=== PATIENT | female | born 1950 | race Caucasian/White ===

== ENCOUNTER → 2017-03-16 | Outpatient (CLI) | payer OTHER | LOC: FIMAGING 12:23 | PROVIDERS: ATTEND Family Medicine | DX: Z12.31 Encounter for screening mammogram for malignant neoplasm of breast (principal); Z80.3 Family history of malignant neoplasm of breast | CPT/HCPCS: G0202 ==

== ENCOUNTER → 2017-04-26 | Outpatient (CLI) | payer OTHER | LOC: FIMAGING 12:09 | PROVIDERS: ATTEND Registered Nurse | DX: M79.642 Pain in left hand (principal) ==

== ENCOUNTER 2017-06-09 10:40 | Observation (INO) | payer OTHER ==
[2017-06-09 10:45] VITALS: RESP 16
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
[2017-06-09] MEDS ORDERED: ALBUTEROL 60 PUFFS/8 GM MDI IH PRN (14:20)
[2017-06-09] MEDS ORDERED: NALOXONE HCL 0.4 MG/ML INJ IVP PRN (14:21)
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
[2017-06-09] MEDS: IBUPROFEN 600 MG TAB PO PRN (17:19)
[2017-06-09] MEDS: AMITRIPTYLINE HCL 50 MG TAB PO SCH (20:04)
[2017-06-09] MEDS: valACYclovir 500 MG TAB PO SCH (20:04)
[2017-06-09] MEDS: HYDROCODONE/APAP 5/325 TAB PO PRN (22:32)
[2017-06-10] MEDS: LEVOTHYROXINE 125 MCG TAB PO SCH (06:02)
[2017-06-10] MEDS: IBUPROFEN 600 MG TAB PO PRN (06:02)
[2017-06-10] MEDS: MONTELUKAST SODIUM 10 MG TAB PO SCH (09:02)
[2017-06-10] MEDS: OXYBUTYNIN 5 MG EXT REL TAB PO SCH (09:02)
[2017-06-10] MEDS: Mirabegron [Myrbetriq] 50 MG PO SCH (09:08)
[2017-06-10] MEDS: HYDROCODONE/APAP 5/325 TAB PO PRN (09:22)
[2017-06-10] MEDS ORDERED: KETOROLAC 30 MG/1 ML SDV IVP ONE (10:54)
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
[2017-06-10] MEDS: GABAPENTIN 300 MG CAP PO SCH ×3 (11:58→21:09)
[2017-06-10] MEDS: KETOROLAC 15 MG/1 ML SDV IVP SCH ×3 (16:08→23:51)
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
[2017-06-10] MEDS: valACYclovir 500 MG TAB PO SCH (21:09)
[2017-06-10] MEDS: AMITRIPTYLINE HCL 50 MG TAB PO SCH (21:09)
[2017-06-11 03:44] VITALS: TEMP 96.1
[2017-06-11] MEDS: LEVOTHYROXINE 125 MCG TAB PO SCH (06:32)
[2017-06-11] MEDS: KETOROLAC 15 MG/1 ML SDV IVP SCH ×2 (06:32→11:42)
[2017-06-11 08:12] VITALS: BP 131/70; PULSE 58; O2SAT 95
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
[2017-06-11] MEDS: MONTELUKAST SODIUM 10 MG TAB PO SCH (10:16)
[2017-06-11] MEDS: OXYBUTYNIN 5 MG EXT REL TAB PO SCH (10:16)
[2017-06-11] MEDS: GABAPENTIN 300 MG CAP PO SCH (10:16)
[2017-06-11] MEDS: Mirabegron [Myrbetriq] 50 MG PO SCH (10:17)
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
== END 2017-06-11 12:08 | disposition home or self-care (01) ==
LOC: EDUNIT# → F3N 16:28 → OBSVTOIN 06-10 11:18 → INTOOBSV 06-10 11:18
PROVIDERS: ADMIT Surgery; ATTEND Surgery
DX: S86.312A Strain of muscle(s) and tendon(s) of peroneal muscle group at lower leg level, left leg, initial encounter (principal); S99.911A Unspecified injury of right ankle, initial encounter; S99.912A Unspecified injury of left ankle, initial encounter; S00.03XA Contusion of scalp, initial encounter; V03.00XA Pedestrian on foot injured in collision with car, pick-up truck or van in nontraffic accident, initial encounter; Y92.410 Unspecified street and highway as the place of occurrence of the external cause; Y99.8 Other external cause status; R40.2411 Glasgow coma scale score 13-15, in the field [EMT or ambulance]; E03.9 Hypothyroidism, unspecified; G43.909 Migraine, unspecified, not intractable, without status migrainosus; J45.909 Unspecified asthma, uncomplicated; Z96.652 Presence of left artificial knee joint; Z88.2 Allergy status to sulfonamides
CPT/HCPCS: 73590; 73610; 73630; 73718; 73721; 97116; 97161; 97165; 97530; 97535; 99285; G0378; G8978; G8979; G8980; G8987; G8988; J1885

== ENCOUNTER → 2017-07-17 | Outpatient (CLI) | payer OTHER | LOC: FIMAGING 08:21 | PROVIDERS: ATTEND Ophthalmology Retina Specialist | DX: H47.011 Ischemic optic neuropathy, right eye (principal) ==

== ENCOUNTER → 2018-04-06 | Outpatient (CLI) | payer OTHER | LOC: FIMAGING 12:24 | PROVIDERS: ATTEND Family Medicine | DX: Z12.31 Encounter for screening mammogram for malignant neoplasm of breast (principal); Z80.3 Family history of malignant neoplasm of breast ==

== ENCOUNTER → 2018-05-08 | Outpatient (CLI) | payer OTHER | LOC: FIMAGING 15:18 | PROVIDERS: ATTEND Physician Assistant | DX: R05 Cough (principal); J40 Bronchitis, not specified as acute or chronic ==

== ENCOUNTER 2018-08-07 13:33 | Day surgery (SDC) | payer OTHER ==
--- NOTE | 2018-08-06 10:02 | GHP ---
[f rep st] PREOP HISTORY AND PHYSICAL DATE OF ADMISSION: 08/07/2018 CHIEF COMPLAINT: Right midfoot pain. HISTORY OF PRESENT ILLNESS: Patient is a 68-year-old with history of progressive pain and stiffness in the right foot. She is having limitations in ability to ambulate secondary to her pain. PAST MEDICAL HISTORY: Positive for hypothyroid, hypercholesterol, migraines. MEDICINES: Include amitriptyline, azelastine, estradiol, levothyroxine, montelukast, Myrbetriq, oxybutynin, simvastatin, valacyclovir. ALLERGIES: She lists allergies to contrast iodine and sulfa. SOCIAL HISTORY: Negative for tobacco use. PHYSICAL EXAMINATION: GENERAL: She is overall appearing in no acute distress. HEENT: Normocephalic. Pupils equal, round, reactive to light. Extraocular eye movements intact. NECK: Supple. No JVD or lymphadenopathy. CHEST: Clear to auscultation. HEART: Regular rate and rhythm. ABDOMEN: Nontender, nondistended. No organomegaly. GENITAL/RECTAL/BREASTS: Deferred. EXTREMITIES : Reveal mild swelling and tenderness in the mid foot. Her distal neurovascular exam is intact. ASSESSMENT: Right midfoot arthrosis. PLAN: She is scheduled to undergo midfoot arthrodesis. /[id number]/MODL MTDD
--- NOTE | 2018-08-07 12:31 | PDHPUP ---
History & Physical Update H&P update statement: This history and physical update is based on an assessment of the patient which was completed after admission or registration (within 24 hours), but prior to the surgery/procedure. H&P update: H&P reviewed & patient examined, no change in patient's condition since H&P completed
[2018-08-07] MEDS ORDERED: LR 1,000 ML IV ONE (13:49)
[2018-08-07] MEDS ORDERED: ceFAZolin 2 GM/DEXTROSE 100 ML IV ONE (13:49)
[2018-08-07] MEDS ORDERED: BUPIVACAINE 0.5% 30 ML SDV ONE (14:34)
[2018-08-07] MEDS ORDERED: MIDAZOLAM 2 MG/2 ML VIAL ONE (15:33)
[2018-08-07] MEDS ORDERED: MIDAZOLAM 2 MG/2 ML VIAL IVP ONE (15:35)
--- NOTE | 2018-08-07 15:35 | PDANEPAE ---
ANE Past Medical History - Cardiovascular History Hx Hypertension: No Hx Arrhythmias: No Hx Chest Pain: No Hx Coronary Artery / Peripheral Vascular Disease: No Hx CHF / Valvular Disease: No Hx Palpitations: No - Pulmonary History Hx COPD: No Hx Asthma/Reactive Airway Disease: No Hx Recent Upper Respiratory Infection: No Hx Oxygen in Use at Home: No Hx Sleep Apnea: Yes Sleep Apnea Screening Result - Last Documented: Positive Pulmonary History Comment: RECENTLY DXd SLEEP APNEA - MOUTHGUARD - Neurologic History Hx Cerebrovascular Accident: No Hx Seizures: No Hx Dementia: No - Endocrine History Hx Diabetes: No Endocrine History Comment: HYPOTHYROID - Renal History Hx Renal Disorders: Yes Renal History Comment: OVERACTIVE BLADDER. NEPHRECTOMY L - Liver History Hx Hepatic Disorders: No - Neurological & Psychiatric Hx Hx Neurological and Psychiatric Disorders: No - Cancer History Hx Cancer: No - Congenital Disorder History Hx Congenital Disorders: No - GI History Hx Gastrointestinal Disorders: No - Other Health History Other Health History: HX - CHRONIC LYME DISEASE - Surgical History Prior Surgeries: HYSTERECTOMY. NEPHRECTOMY L. L TKA ANE Review of Systems Review of Systems: - Exercise capacity METS (RN): 4 METS ANE Patient History - Allergies Allergies/Adverse Reactions: Sulfa (Sulfonamide Antibiotics) Allergy (Verified 06/09/17 10:46) DYE Allergy (Uncoded 08/01/18 15:33) THROAT CLOSING & HIVES - Home Medications Home Medications: Amitriptyline HCl [Elavil 50 mg (*)] 50 mg PO HS 06/09/17 [Last Taken 08/06/18] Levothyroxine [Synthroid 125 mcg (*)] 125 mcg PO DAILY06 06/09/17 [Last Taken 09:00] Mirabegron [Myrbetriq] 50 mg PO DAILY 06/09/17 [Last Taken 08/07/18 09:00] Montelukast Sodium [Singulair 10 mg (*)] 10 mg PO DAILY 06/09/17 [Last Taken 09:00] Oxybutynin Chloride Xl [Ditropan Xl 5mg (*)] 10 mg PO DAILY 06/09/17 [Last Taken 08/07/18 09:00] valACYclovir [Valtrex (*)] 500 mg PO HS 06/09/17 [Last Taken 08/06/18] Estradiol 08/01/18 [Last Taken 1 Week Ago ~07/31/18] Simvastatin 08/01/18 [Last Taken 08/06/18] - NPO status NPO Since - Liquids (Date): 08/07/18 NPO Since - Liquids (Time): 12:00 NPO Since - Solids (Date): 08/06/18 NPO Since - Solids (Time): 22:00 - Smoking Hx Smoking Status: Never smoked - Family Anes Hx Family Hx Anesthesia Complications: NEG ANE Labs/Vital Signs - Vital Signs Blood Pressure: 168/108 Heart Rate: 70 Respiratory Rate: 16 O2 Sat (%): 96 Height: 165.1 cm Weight: 87.09 kg ANE Physical Exam - Airway Neck exam: decreased ROM Mallampati Score: Class 2 Mouth exam: normal dental/mouth exam - Pulmonary Pulmonary: no respiratory distress - Cardiovascular Cardiovascular: regular rate and rhythym - ASA Status ASA Status: II ANE Anesthesia Plan Anesthesia Plan: GA w LMA Regional Anesthesia: popliteal SNB
--- NOTE | 2018-08-07 15:40 | POSTOPPROG ---
Post Op Note Date of Operation: 08/07/18 Surgeon: Nelson Lr Oiler And Greaser: [place] Anesthesia: LMA Pre-op Diagnosis: R 2/3 midfoot arthritis, hallux rigidus Post-op Diagnosis: same Procedure: R 2/3 midfoot arthrodesis, 1st MTP cheilectomy/debridement Inf/Abcess present in the surg proc area at time of surgery?: No EBL: Minimal
[2018-08-07] MEDS ORDERED: LIDOCAINE 2% 5 ML SDV ONE (15:42)
[2018-08-07] MEDS ORDERED: DEXAMETHASONE 4 MG/ML VIAL ONE (15:42)
[2018-08-07] MEDS ORDERED: fentaNYL 250 MCG/5 ML INJ ONE (15:42)
[2018-08-07] MEDS ORDERED: PROPOFOL 200 MG/20 ML VIAL ONE ×2 (15:42)
[2018-08-07] MEDS ORDERED: ONDANSETRON 4 MG/2 ML VIAL ONE (15:42)
[2018-08-07] MEDS ORDERED: ROPIVACAINE HCL 150 MG/30 ML INJ ONE (15:43)
[2018-08-07] MEDS ORDERED: LABETALOL HCL 5 MG/ML 20 ML MDV IVP PRN (16:31)
[2018-08-07] MEDS ORDERED: oxyCODONE IR 5 MG TAB PO PRN (16:31)
[2018-08-07] MEDS ORDERED: PROMETHAZINE HCL 25 MG/ML INJ IVP PRN (16:31)
[2018-08-07] MEDS ORDERED: fentaNYL 100 MCG/2 ML INJ IVP PRN (16:31)
[2018-08-07] MEDS ORDERED: NALOXONE HCL 0.4 MG/ML INJ IVP PRN (16:31)
[2018-08-07] MEDS ORDERED: ePHEDrine SULFATE 25 MG/5 ML SYR ONE (16:43)
--- NOTE | 2018-08-07 17:00 | POSTANESTH ---
Post Anesthetic Evaluation Cardiovascular Status: Normal, Stable Respiratory Status: Normal, Stable Level of Consciousness/Mental Status: Can Participate in Eval Pain Control: Adequate, Prn Tx Ordered Nausea/Vomiting Control: Adequate, Prn Tx Ordered Complications Possibly Related to Anesthesia: None Noted
[2018-08-07 19:00] VITALS: BP 151/73
--- NOTE | 2018-08-07 21:18 | GOP ---
[f rep st] OPERATIVE REPORT DATE OF OPERATION: 08/07/2018 SURGEON: Nelson Lr MD BROOM MAN: Israel Edwards PA-C, who was necessary for the completion of the surgery. ANESTHESIA: General plus popliteal block performed by the anesthesiologist at my request for postope rative pain management. PREOPERATIVE DIAGNOSIS: 1. Right midfoot arthrosis (M1, C1, M2, C2). 2. Right hallux rigidus. POSTOPERATIVE DIAGNOSIS: 1. Right midfoot arthrosis (M1, C1, M2, C2). 2. Right hallux rigidus. PROCEDURE PERFORMED: 1. Right midfoot arthrodesis (M1, C1, M2, C2). 2. Right 1st metatarsophalangeal cheilectomy and debridement. FINDINGS: ESTIMATED BLOOD LOSS: Minimal. INDICATIONS: The patient is a 68-year-old history of progressive midfoot and forefoot pain. 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 Based on her persistence of symptoms, refractory to nonoperative treatme nt, she is interested in pursuing operative treatment. From an operative standpoint, midfoot arthrod esis and 1st MTP cheilectomy and debridement was recommended. The patient acknowledged she understoo d the potential risks of the operation including, but not limited to, bleeding, infection, neurovascu lar damage, loss of limb or limb function, malunion, nonunion, need for hardware removal, pain or fun ctional limitations despite operative treatment, and anesthetic risks. She acknowledged she understo od the potential risks, planned procedure, and postoperative plan well, and had all questions answere d prior to surgery. She gave her consent for the operative procedure. DESCRIPTION OF PROCEDURE: The patient was brought to the operating room after IV antibiotics were ad ministered. Popliteal block was performed by the anesthesiologist at my request for postoperative pa in management. General anesthetic was administered. A tourniquet was placed on her right calf and t he right lower leg was prepped and draped in standard sterile fashion. After marking the incision, A ce wrap exsanguination, tourniquet was inflated to 250. The longitudinal incision was made along the dorsal aspect of the midfoot. Skin and subcutaneous tissue were sharply incised. Dissection was ca rried lateral to the neurovascular bundle down to the 2nd TMT joint. A limited amount of reflection of the 2nd metatarsal was performed for screw placement. Dissection was carried through the same inc ision, laterally exposing the 3rd metatarsal and the 3rd TMT joint. Both the 2nd and 3rd tarsometata rsal joints were noted to have advanced degenerative changes. Utilizing a chisel and rongeur, the ricardo ints were denuded of all articular cartilage. In preparation for arthrodesis subchondral bone was dr illed multiple times with a 2.0 mm drill bit and further roughened with a chisel. Using a 4 mm bur, troughs were created on the dorsal aspect of the 2nd and 3rd metatarsals for screw placement. With t he joint held in a properly reduced position, 3.5 mm cortical screws were placed in lag fashion from the dorsal aspect of the 2nd metatarsal and the plantar aspect of the middle cuneiform and dorsal asp ect of the 3rd metatarsal and the plantar aspect of the lateral cuneiform. Fluoroscopic views confir med favorable hardware position and arthrodesis position. Attention was directed toward closure. Th e deep tissue was closed with 2-0 Vicryl suture in interrupted fashion. Subcutaneous tissue was clos ed with 3-0 Vicryl suture in interrupted fashion. Skin closed with 4-0 nylon interrupted sutures. A longitudinal incision was then made along the dorsal aspect of the 1st MTP joint. Skin and subcuta neous tissue were sharply incised. Sharp dissection was carried adjacent to the EHL down to the caps ule. The capsule was reflected medially and laterally. Manipulation through the joint was performed to increase range of motion with the adherent capsule. Utilizing a rongeur, the bony prominences on the dorsal aspect of the proximal phalanx and metatarsal head were removed. Favorable motion withou t any impingement was achieved. The extensor retinaculum was closed with 2-0 Vicryl suture in interr upted fashion. Subcutaneous tissue closed with 3-0 Vicryl suture in interrupted fashion. Skin close d with 4-0 nylon interrupted sutures. The wounds were dressed with sterile Adaptic, 4 x 4, and Webri l, and leg was placed in a below-knee splint. Patient tolerated the procedure well and was taken to the recovery room, extubated in a stable condition postoperatively. All sponge, needle, and instrume nt counts were reported as being correct. DRAINS: None. COMPLICATIONS: None. PLAN: The patient will be discharged home, nonweightbearing on her operative extremity. /[id number]/MODL
== END 2018-08-07 18:26 | disposition home or self-care (01) ==
LOC: FSGY 13:33
PROVIDERS: ATTEND Orthopaedic Surgery Foot and Ankle Surgery
DX: M19.071 Primary osteoarthritis, right ankle and foot (principal); M20.21 Hallux rigidus, right foot; E03.9 Hypothyroidism, unspecified; E78.5 Hyperlipidemia, unspecified; G43.909 Migraine, unspecified, not intractable, without status migrainosus; Z96.652 Presence of left artificial knee joint; Z91.041 Radiographic dye allergy status; Z88.2 Allergy status to sulfonamides
CPT/HCPCS: C1713; J0690; J1100; J2250; J2405; J2704; J2795; J3010

== ENCOUNTER 2018-08-08 12:40 | Emergency (ER) | payer OTHER ==
--- NOTE | 2018-08-08 12:56 | EDPHY ---
H & P Stated Complaint: Right foot surgery yesterday, unable to void. Source: Patient Exam Limitations: No limitations - Personal History Current Tetanus Diphtheria and Acellular Pertussis (TDAP): Yes Tetanus Vaccine Date: < 10 YEARS - Medical/Surgical History Hx Asthma: No Hx Chronic Respiratory Disease: No Hx Diabetes: No Hx Cardiac Disease: No Hx Renal Disease: Yes Hx Cirrhosis: No Hx Alcoholism: No Hx HIV/AIDS: No Hx Splenectomy or Spleen Trauma: No Other PMH: HYPOTHYROID, MIGRAINES,left knee replacement, one kidney removed. - Social History Smoking Status: Never smoked Time Seen by Provider: 08/08/18 12:51 HPI/ROS: HPI: This is a 68-year-old female who presents with Chief Complaint: Right foot surgery yesterday, unable to void. Location: Quality: Inability to urinate Duration: 6-8 hours Signs and Symptoms: no fever, no nausea, no vomiting, no hematemesis, no blood in stool, + abdominal bloating, no diarrhea, no back pain, no urinary symptoms, no vaginal bleeding/discharge, no indigestion, no chest pain, no shortness of breath Timing: Acute, constant Severity: Moderate Context: Patient presents with inability to urinate for the last 8 hr. She was discharged home around 7:00 p.m. Last night status post right foot surgery by Dr. Lr. She woke up with some wetness in her underwear from urinary dribbling. She has a history of recurrent UTIs but denies fevers, burning with urination. She is able to urinate small amounts several times per day. Complains of suprapubic fullness and bloating. Denies back pain, fever, dysuria. Taking pain medications. Modifying Factors: None Comment: ROS: A comprehensive 10 system review of systems is otherwise negative aside from elements mentioned in the history of present illness. MEDICAL/SURGICAL/SOCIAL HISTORY: Medical history: HYPOTHYROID, MIGRAINES, recurrent urinary tract infections Surgical history: Right foot surgery by Dr. Lr, left knee replacement, nephrectomy Social history: . Nonsmoker. Family history noncontributory. CONSTITUTIONAL: Polite and cooperative adult white female, at bedside, awake and alert, no obvious distress HEENT: Atraumatic and normocephalic, PERRL, EOMI. Nares patent; no rhinorrhea; no nasal mucosal edema. Tympanic membranes clear. Oropharynx clear, no exudate and moist pink mucosa. Airway patent. No lymphadenopathy. No meningismus. Cardiovascular: Normal S1/S2, regular rate, regular rhythm, without murmur rub or gallop. PULMONARY/CHEST: Symmetrical and nontender. Clear to auscultation bilaterally. Good air movement. No accessory muscle usage. ABDOMEN: Soft, nondistended, moderate suprapubic tenderness, no rebound, no guarding, no peritoneal signs, no masses or organomegaly. No CVAT. EXTREMITIES: 2/2 pulses, strength 5/5, right foot in splint; able to wiggle all 5 toes without any difficulty. NEUROLOGICAL: no focal neuro deficits. GCS 15. SKIN: Warm and dry, no erythema. no rash. Good capillary refill. (Brooklynn Carnes) Constitutional: Initial Vital Signs Temperature (C) 36.9 C 08/08/18 12:41 Heart Rate 80 08/08/18 12:41 Respiratory Rate 18 08/08/18 12:41 Blood Pressure 132/85 H 08/08/18 12:41 O2 Sat (%) 94 08/08/18 12:41 O2 Delivery Mode Room Air Allergies/Adverse Reactions: Sulfa (Sulfonamide Antibiotics) Allergy (Verified 06/09/17 10:46) DYE Allergy (Uncoded 08/01/18 15:33) THROAT CLOSING & HIVES Home Medications: Medication Instructions Recorded Amitriptyline HCl [Elavil 50 mg 50 mg PO HS 06/09/17 (*)] Levothyroxine [Synthroid 125 mcg 125 mcg PO DAILY06 06/09/17 (*)] Mirabegron [Myrbetriq] 50 mg PO DAILY 06/09/17 Montelukast Sodium [Singulair 10 10 mg PO DAILY 06/09/17 mg (*)] Oxybutynin Chloride Xl [Ditropan 10 mg PO DAILY 06/09/17 Xl 5mg (*)] valACYclovir [Valtrex (*)] 500 mg PO HS 06/09/17 Estradiol 08/01/18 Simvastatin 08/01/18 Medical Decision Making ED Course/Re-evaluation: Vital signs reviewed and stable upon arrival. Bladder scan by IS=332 mL Galeano catheter placed with return of clear yellow urine and relief of symptoms urine analysis sent 1340: Urinalysis is unremarkable. Referral to Urology for Galeano removal in the next 3-5 days. No signs of pyelonephritis, sepsis. Follow-up with Orthopedics as previously planned. This patient was seen under the supervision of my secondary supervising physician. I evaluated and cared for this patient independently. (Brooklynn Carnes) I did not see this patient while she was in the emergency department. However her care was discussed with the PA while the patient was in the department. I agree with treatment plan and management (Jairon Henao) Differential Diagnosis: Differential diagnosis includes but is not limited to urinary retention, urinary tract infection, pyelonephritis, sepsis. (Brooklynn Carnes) - Data Points Laboratory Results: 08/08/18 13:14 Urine Color PALE YELLOW Urine Appearance CLEAR Urine pH 6.0 (5.0-7.5) Ur Specific [place] 1.009 (1.002-1.030) Urine Protein NEGATIVE (NEGATIVE) Urine Ketones NEGATIVE (NEGATIVE) Urine Blood NEGATIVE (NEGATIVE) Urine Nitrate NEGATIVE (NEGATIVE) Urine Bilirubin NEGATIVE (NEGATIVE) Urine Urobilinogen NEGATIVE EU EU (0.2-1.0) Ur Leukocyte Esterase NEGATIVE (NEGATIVE) Urine Glucose NEGATIVE (NEGATIVE) Departure - Departure Disposition: Home, Routine, Self-Care Clinical Impression: Postoperative urinary retention Condition: Good Instructions: Galeano Catheter Placement and Care (ED), Acute Urinary Retention in Women (ED), Galeano Catheter Removal (DC) Additional Instructions: Please follow-up with Urology in the next 2-3 days to have your Galeano catheter removed. Call tomorrow for an appointment on Monday or Monday. Continue to follow orthopedic instructions as directed by Dr. Lr. Referrals: Mely Guadarrama MD [Primary Care Provider] - As per Instructions Nelson Lr MD [Medical Doctor] - As per Instructions Braulio Enriquez MD [Medical Doctor] - As per Instructions
[2018-08-08 13:55] VITALS: BP 134/68
--- NOTE | 2018-08-08 15:47 | ASMTCMCOM ---
CM Note CM Note Notes: This CM sent referral and scheduled ER follow up appointment with Zoe Horne at [facility] for August 10 at 10:00 at the [place] office location; [address] [place] [address]. Patient contacted and informed of appoinment time and location. Appointment scheduled with [facility] and referral faxed to with confirmation CM available for further needs prn Date Signed: 08/08/2018 03:46 PM Electronically Signed By:Lucille Recio RN
--- NOTE | 2018-08-08 15:52 | ASMTCMCOM ---
CM Note CM Note Notes: [facility] at [facility] (previously known as [facility]) contatced and ER follow up appointment scheduled with Dr. Enriquez for August 10 at 10:00 at the [place] location; [address]. ER report/referral faxed to with confirmation. Patient contacted with appointment confirmation including date, time, and location. CM available for further needs prn Date Signed: 08/08/2018 03:51 PM Electronically Signed By:Lucille Recio RN
== END 2018-08-08 13:55 | disposition home or self-care (01) ==
DX: R33.9 Retention of urine, unspecified (principal); Z98.890 Other specified postprocedural states